=== PATIENT | female | born 1970 | race Caucasian/White ===

== ENCOUNTER → 2016-11-18 | Outpatient (CLI) | payer BC ==
--- NOTE | 2016-11-18 15:30 | US ---
History: Palpable nodule left breast. History of benign excision on the right. DATE OF SERVICE: 11/18/2016 Services provided: Full field digital bilateral diagnostic mammography. CAD, the images were reviewed with R2 computer aided detection. Directed Limited left breast sonography. FINDINGS: Routine and true lateral views are obtained. No prior study is available for comparison. Glandular tissue has a nodular contour and increased mammographic density. Vague low density nodular density is shown at 12:00 left breast corresponding to the region of palpable change. No associated calcifications or distortion. Surgical clips right breast periareolar 12-1 o'clock. Directed ultrasound exam confirms palpable nodule to correspond to a 13 mm simple cyst left breast 12:00. Additional simple cysts are shown in the upper portion of the left breast. There is no sonographically suspicious finding. IMPRESSION: Benign exam. Region of topical change in the left breast corresponds to fibrocystic change with a 13 mm simple cyst. Recommendation: Routine annual mammography. Findings and recommendations were communicated to the patient by the technologist. BIRAD CATEGORY: 2 BENIGN Electronically signed by: Laura Corley MD 11/18/2016 3:29 PM CDT Workstation: [id number]
== END | disposition home or self-care (01) ==
LOC: MAMMO 14:32
PROVIDERS: ATTEND Family Medicine
DX: R92.8 Other abnormal and inconclusive findings on diagnostic imaging of breast (principal)

== ENCOUNTER → 2018-02-27 | Outpatient (CLI) | payer BC ==
--- NOTE | 2018-02-28 09:53 | MAM ---
EXAM DESCRIPTION: 3D Screening BILATERAL : Digital Mammography. CLINICAL HISTORY: 48 years Female SCREENING history of fibroglandular breast. Tender during menstrual cycle. No personal history or family history of breast cancer. Childbirth. Premenopausal. No HRT. Cyst aspiration and biopsy right breast. Bilateral breast reduction 2004.. Lifetime risk of developing breast cancer (Tyrer-Cuzick model)(%): 12.9. COMPARISON: Bilateral 2-D diagnostic mammographic examination 11/18/2016.. Targeted left breast ultrasound on the same visit. TECHNIQUE: Bilateral CC and MLO projection full-field images, Digital tomosynthesis mammographic technique. Bilateral digital 2-D full-field MLO images. CAD not utilized. FINDINGS: The breast parenchymal density pattern is: Heterogeneously dense breast tissue, which may obscure small masses. No skin thickening or nipple retraction. Bilateral solitary microcalcifications. Nodular-type fibroglandular tissues. Focal asymmetry in the posterior third of the left breast approximately 7 cm from the nipple at the 600 clock position. Not well demonstrated on the prior images. Surgical clips and scarring in the region of prior anterior right breast biopsy. No new focal, stellate mass or density, focal asymmetry , and no suspicious microcalcifications right breast. IMPRESSION: BI-RADS CATEGORY: 0 - INCOMPLETE- Need additional imaging evaluation. FOLLOW-UP: Recall for additional imagin-D full-field tomosynthesis and digital special spot imaging left breast with follow-up targeted left breast ultrasound if indicated by diagnostic images. Written communication concerning the IMPRESSION and Follow-up, will be mailed to the patient and referring health care provider. Electronically signed by: Donte Duff MD 02/28/2018 9:52 AM CDT
== END ==
LOC: MAMMO 13:20
PROVIDERS: ATTEND Family Medicine
DX: Z12.31 Encounter for screening mammogram for malignant neoplasm of breast (principal); Z00.00 Encounter for general adult medical examination without abnormal findings

== ENCOUNTER → 2018-03-13 | Outpatient (CLI) | payer BC ==
--- NOTE | 2018-03-13 15:17 | US ---
EXAM DESCRIPTION: Breast,Left: Ultrasound CLINICAL HISTORY: 48 yearsFemaleABNORMAL MAMMO. Focal asymmetry lateral and lower outer quadrant left breast. COMPARISON: Digital diagnostic tomosynthesis mammogram left breast on this visit. TECHNIQUE: Transcutaneous scanning of the left breast utilizing todd-scale and Doppler modes. Scanning performed by the web content specialist ; Dr. Sherin elder. FINDINGS: Scanning of the lower outer quadrant of the left breast with emphasis on the 3:00 position 7 cm from the nipple. Cluster of cysts or multiseptated cyst with circumscribed borders, mostly anechoic, parallel orientation, and posterior enhancement features. Nonvascular. Dimensions of 11 x 9 mm. Surrounding tissue is mostly fatty echotexture with islands of fibroglandular tissue. Other anechoic cysts are visualized with same imaging features but smaller in size. No distinct solid mass, no large calcifications parenchymal edema, or abnormal vascularity. Overlying skin unremarkable. IMPRESSION: 1. Bi-Rads Category 2: Benign. 2. Please refer to left breast diagnostic digital tomosynthesis examination and report on this visit. The FINDINGS and the FOLLOW-UP plan were reviewed in person with the patient after the examination. Written communication explaining the IMPRESSION and FOLLOW-UP will be mailed to the patient and referring care provider. Electronically signed by: Donte Duff MD 03/13/2018 3:16 PM CDT
--- NOTE | 2018-03-14 18:54 | MAM ---
EXAM DESCRIPTION: 3D Diagnostic, Left: Digital Mammography CLINICAL HISTORY: 48 yearsFemaleABNORMAL MAMMO focal asymmetry middle third lower left breast. COMPARISON: Digital breast tomosynthesis bilateral screening 02/27/2018.. TECHNIQUE: Left LM projection full-field images, digital mammographic tomosynthesis technique. Left breast digital 2-D magnification images of the posterior inferior left breast MLO and CC projections. CAD not utilized. FINDINGS: The breast parenchymal density pattern is: Heterogeneously dense breast tissue, which may obscure small masses. No skin thickening or nipple retraction IV noted is focal asymmetry at the 600-700 clock position of the middle third of the lower outer quadrant left breast approximately 7 cm from the nipple. May contain central radiolucency on tomosynthesis images. No abnormal calcifications are seen. Ultrasound: Scanning of the lower outer quadrant of the left breast with emphasis on the 3:00 position 7 cm from the nipple. Cluster of cysts or multiseptated cyst with circumscribed borders, mostly anechoic, parallel orientation, and posterior enhancement features. Nonvascular. Dimensions of 11 x 9 mm. Surrounding tissue is mostly fatty echotexture with islands of fibroglandular tissue. Other anechoic cysts are visualized with same imaging features but smaller in size. No distinct solid mass, no large calcifications parenchymal edema, or abnormal vascularity. Overlying skin unremarkable. IMPRESSION: Benign exam. BIRAD CATEGORY: 2 BENIGN FINDINGS. RECOMMENDATIONS: FOLLOW UP: Return to routine digital bilateral screening, one year interval from February 2018. Written communication explaining the IMPRESSION and follow-up, will be mailed to the patient and referring health care provider. According to the [employer], yearly mammograms are recommended starting at age 40 and continuing as long as a woman is in good health. Any breast change noted on a breast self-exam should be reported promptly to the patient's healthcare provider. Breast MRI is recommended for women with an approximately 20-25% or greater lifetime risk of breast cancer, including women with a strong family history of breast or ovarian cancer and women who have been treated for Hodgkin's disease. A negative mammographic report should not delay tissue diagnosis in patients with significant clinical history or physical findings. Extremely dense breast tissue limits the sensitivity of digital mammography. Electronically signed by: Donte Duff MD 03/14/2018 6:53 PM CDT
== END ==
LOC: MAMMO 13:09
PROVIDERS: ATTEND Family Medicine
DX: R92.8 Other abnormal and inconclusive findings on diagnostic imaging of breast (principal)
CPT/HCPCS: 76641; 77065; G0279

== ENCOUNTER → 2019-03-29 | Outpatient (CLI) | payer BC ==
--- NOTE | 2019-04-02 09:43 | MAM ---
EXAM DESCRIPTION: 3D Screening BILATERAL : Digital Mammography. CLINICAL HISTORY: 49 years Female ANNUAL SCREENING . No complaints. No personal or family history of breast cancer. Menarche age 13. Childbirth. Premenopausal. No HRT. Benign right breast biopsy. Bilateral breast reduction. Lifetime risk of developing breast cancer (Tyrer-Cuzick model)(%): 12.7. COMPARISON: Bilateral screening digital breast tomosynthesis 27 February 2018 and 2-D digital diagnostic bilateral mammography 18 November 2016. Diagnostic left breast ultrasound 13 March 2018. TECHNIQUE: Bilateral CC and MLO projection full-field images, digital tomosynthesis mammographic technique. Bilateral digital 2-D full-field MLO images. CAD not available for tomosynthesis or 2-D images. FINDINGS: The breast parenchymal density pattern is: Heterogeneously dense breast tissue, which may obscure small masses. No skin thickening or nipple retraction. Surgical clips anterior and retroareolar right breast stable. Right breast axillary lymph nodes. Bilateral solitary microcalcifications. Minimal bilateral posterior architectural distortion most likely related to prior breast reduction. No new focal, stellate mass or density, focal asymmetry , and no suspicious microcalcifications bilaterally. Stable mammograms compared to prior study. Taking into account, differences in mammographic technique. IMPRESSION: Benign exam. BIRAD CATEGORY: 2 BENIGN FINDINGS. RECOMMENDATIONS: FOLLOW UP: Routine digital bilateral mammographic screening, one year interval from February 2019. Written communication explaining the IMPRESSION and follow-up, will be mailed to the patient and referring health care provider. According to the [employer], yearly mammograms are recommended starting at age 40 and continuing as long as a woman is in good health. Any breast change noted on a breast self-exam should be reported promptly to the patient's healthcare provider. Breast MRI is recommended for women with an approximately 20-25% or greater lifetime risk of breast cancer, including women with a strong family history of breast or ovarian cancer and women who have been treated for Hodgkin's disease. A negative mammographic report should not delay tissue diagnosis in patients with significant clinical history or physical findings. Extremely dense breast tissue limits the sensitivity of digital mammography. Electronically signed by: Donte Duff MD 04/02/2019 9:41 AM TOWER LOADER OPERATOR
== END ==
LOC: MAMMO 11:30
PROVIDERS: ATTEND Family Medicine
DX: Z12.31 Encounter for screening mammogram for malignant neoplasm of breast (principal)

== ENCOUNTER → 2020-05-21 | Outpatient (CLI) | payer BC | LOC: GMAJ 10:09 | PROVIDERS: ATTEND Family Medicine | DX: Z79.899 Other long term (current) drug therapy (principal) ==

== ENCOUNTER → 2020-05-28 | Outpatient (CLI) | payer BC ==
--- NOTE | 2020-05-29 11:34 | MAM ---
EXAM DESCRIPTION: 3D Screening BILATERAL : Digital Mammography. CLINICAL HISTORY: 50 years Female SCREEN . No complaints. No family history of breast cancer. Menarche age 13. Childbirth age 26. Premenopausal. No HRT. Lifetime risk of developing breast cancer (Tyrer-Cuzick model)(%): 11.6. COMPARISON: Bilateral screening digital breast tomosynthesis February 2019 and February 2018. Diagnostic digital breast tomosynthesis also February 2018 with reactive left breast ultrasound TECHNIQUE: Bilateral CC and MLO projection full-field images, digital tomosynthesis mammographic technique. Bilateral digital 2-D full-field MLO images. CAD available for 2-D images. FINDINGS: The breast parenchymal density pattern is: Heterogeneously dense breast tissue, which may obscure small masses. Axillary nodes. Solitary microcalcifications. Biopsy site clips upper inner quadrant anterior right breast. Minimal adjacent architectural distortion is stable. No new site of focal asymmetry and possible architectural distortion in the left breast, 8.5 cm from the nipple at 3:00-3:30. No definite calcifications. Not seen on the prior study. No skin thickening or nipple retraction No new focal, stellate mass or density, focal asymmetry , and no suspicious microcalcifications right breast. IMPRESSION: BI-RADS CATEGORY: 0 - INCOMPLETE- Need additional imaging evaluation. RECOMMENDATIONS: FOLLOW-UP: Recall for additional imaging: Left breast full field lateral medial 2-dimensional and tomosynthesis imaging. Follow-up directed left breast ultrasound the region of interest.. Written communication concerning the IMPRESSION and Follow-up, will be mailed to the patient and referring health care provider. Electronically signed by: Donte Duff MD 05/29/2020 11:32 AM [facility]
== END ==
LOC: MAMMO 07:53
PROVIDERS: ATTEND Family Medicine
DX: Z12.31 Encounter for screening mammogram for malignant neoplasm of breast (principal)

== ENCOUNTER → 2020-06-05 | Outpatient (CLI) | payer BC ==
--- NOTE | 2020-06-06 16:51 | MAM ---
EXAM DESCRIPTION: 3D Diagnostic, Left: Ultrasound CLINICAL HISTORY: 50 yearsFemaleABNORMAL MAMMO. Focal asymmetry left breast. . No complaints at the region of interest. COMPARISON: Bilateral screening digital breast tomosynthesis May 28 and February 2019. TECHNIQUE: Left breast LM projection full-field images, digital tomosynthesis technique. Left breast 2-D digital full-field images: LM projections. CAD available for 2-D images.. Transcutaneous scanning of the left breast utilizing todd-scale and Doppler modes. Scanning performed by the parole board member ; observation by Dr. Duff. FINDINGS: The breast parenchymal density pattern is: Heterogeneously dense breast tissue, which may obscure small masses. Partially circumscribed mass density is again noted approximately 6:00 position posterior third of the left breast, 8.5 cm from the nipple. No skin thickening or nipple retraction No suspicious microcalcifications. Ultrasound: Scanning of the left breast 8 cm from the nipple 5:00 to 6:00 position. Focal fibroglandular tissues in the region of interest with small cysts. No dominant mass and no fluid collection. IMPRESSION: Benign exam. BIRAD CATEGORY: 2 BENIGN FINDINGS. RECOMMENDATIONS: FOLLOW UP: Routine digital bilateral mammographic screening, one year interval from April 2020. Written communication explaining the IMPRESSION and follow-up, will be mailed to the patient and referring health care provider. The FINDINGS and the FOLLOW-UP plan were reviewed in person with the patient after the examination. According to the [employer], yearly mammograms are recommended starting at age 40 and continuing as long as a woman is in good health. Any breast change noted on a breast self-exam should be reported promptly to the patient's healthcare provider. Breast MRI is recommended for women with an approximately 20-25% or greater lifetime risk of breast cancer, including women with a strong family history of breast or ovarian cancer and women who have been treated for Hodgkin's disease. A negative mammographic report should not delay tissue diagnosis in patients with significant clinical history or physical findings. Extremely dense breast tissue limits the sensitivity of digital mammography. Electronically signed by: Donte Duff MD 06/06/2020 4:49 PM [facility]
== END ==
LOC: MAMMO 15:12
PROVIDERS: ATTEND Family Medicine
DX: R92.8 Other abnormal and inconclusive findings on diagnostic imaging of breast (principal)
CPT/HCPCS: 76641; 77065; G0279